=== PATIENT | male | born 1975 | race Caucasian/White ===

== ENCOUNTER 2020-05-15 08:58 | Inpatient (IN) ==
[2020-05-15] MEDS ORDERED: Aspirin 81 MG TAB.CHEW PO SCH (09:30)
[2020-05-15] MEDS: Nitroglycerin 0.4 MG TAB.SUBL SL PRN ×5 (09:45→19:53)
[2020-05-15 10:29] LABS: Basophils # 0.1 K/mcL (0.0-0.2); Basophils % 0.7 %; Eosinophils # 0.1 K/mcL (0.0-0.6); Eosinophils % 1.8 %; Hemoglobin 15.7 g/dL (12.9-16.9); Immature Granulocytes % 0.7 % (0-4); Lymphocytes # 1.2 K/mcL (0.6-4.6); Lymphocytes % 16.7 %; Mean Corpuscular HGB Conc 34.1 g/dL (31.6-35.5); Mean Corpuscular Hemoglobin 28.2 pg (28.0-33.3); Mean Corpuscular Volume 82.6 fL (83.0-100.0); Mean Platelet Volume 11.4 fL (9.4-12.4); Monocytes # 0.5 K/mcL (0.0-1.3); Monocytes % 7.3 %; Neutrophils # 5.3 K/mcL (1.6-8.9); Platelet Count 163 K/mcL (140-400); Red Blood Count 5.57 M/mcL (4.19-5.50); Red Cell Distribution Width 17.1 % (11.5-14.5); Segmented Neutrophils % 72.8 %; White Blood Count 7.3 K/mcL (4.3-11.1)
[2020-05-15 10:38] LABS: BUN/Creatinine Ratio 14 (6-26); Blood Urea Nitrogen 12 mg/dL (6-20); Calcium 9.8 mg/dL (8.6-10.3); Carbon Dioxide 26 mEq/L (23-29); Chloride 101 mEq/L (98-107); Glucose 174 mg/dL (70-105); Lipase 27 Units/L (11-82); Osmolality,Calculated 284 (280-300); Potassium 3.9 mEq/L (3.5-5.1); Sodium 135 mEq/L (136-145); eGFR For African Americans > 60 (> 60); eGFR For Non-African Americans > 60 (> 60)
[2020-05-15 10:43] LABS: Troponin I 2.44 ng/mL (< 0.04)
[2020-05-15 10:45] LABS: Prothrombin Time 11.7 Seconds (9.4-12.1)
[2020-05-15 10:48] LABS: Activated Partial Thrombo Time 25.8 Seconds (26.0-36.0)
[2020-05-15 10:49] LABS: Adenovirus Not Detected (Not Detect); Bordetella Pertussis Not Detected (Not Detect); Chlamydophila pneumoniae Not Detected (Not Detect); Coronavirus 229E Not Detected (Not Detect); Coronavirus HKU1 Not Detected (Not Detect); Coronavirus NL63 Not Detected (Not Detect); Coronavirus OC43 Not Detected (Not Detect); Human Metapneumovirus Not Detected (Not Detect); Human Rhinovirus/Enterovirus Not Detected (Not Detect); Influenza A Subtype 2009 H1 Not Detected (Not Detect); Influenza B Not Detected (Not Detect); Mycoplasma pneumoniae Not Detected (Not Detect); Parainfluenza Virus 1 Not Detected (Not Detect); Parainfluenza Virus 2 Not Detected (Not Detect); Parainfluenza Virus 3 Not Detected (Not Detect); Parainfluenza Virus 4 Not Detected (Not Detect); Respiratory Syncytial Virus Not Detected (Not Detect); SARS-CoV-2 Not Detected (Not Detect)
[2020-05-15] MEDS ORDERED: *HR* Heparin 5,000 UNIT/ML VIAL IVP ONE ×2 (10:56→16:12)
[2020-05-15] MEDS ORDERED: *HR* Heparin 5,000 UNIT/ML VIAL IVP PRN ×4 (10:56→16:12)
[2020-05-15] MEDS ORDERED: Perflutren Lipid Microsphere 1.3 ML in 0.9 % Sodium Chloride 8.7 ML IVP PRN (10:56)
[2020-05-15] MEDS ORDERED: Heparin 25,000UNIT/250ML 1/2NS 25,000 UNIT/250 ML IV.SOLN IVC SCH ×2 (11:00→16:15)
[2020-05-15 11:18] LABS: Hematocrit 45.9 % (37.5-50.1); Hemoglobin 15.6 g/dL (12.9-16.9); Mean Corpuscular Hemoglobin 28.7 pg (28.0-33.3); Mean Corpuscular Volume 84.4 fL (83.0-100.0); Mean Platelet Volume 10.7 fL (9.4-12.4); Platelet Count 167 K/mcL (140-400); Red Blood Count 5.44 M/mcL (4.19-5.50); Red Cell Distribution Width 18.2 % (11.5-14.5); White Blood Count 7.3 K/mcL (4.3-11.1)
[2020-05-15 11:38] LABS: Prothrombin Time 11.7 Seconds (9.4-12.1)
[2020-05-15 11:39] LABS: Heparin anti-factor XA UFH < 0.04 IU/mL (0.30-0.70)
[2020-05-15] MEDS ORDERED: *HR* Promethazine 25 MG/ML VIAL IVP PRN (11:49)
[2020-05-15] MEDS ORDERED: Acetaminophen 325 MG TABLET PO PRN (11:49)
[2020-05-15] MEDS ORDERED: D5% in Water 1,000 ML IVC PRN (11:53)
[2020-05-15] MEDS ORDERED: *HR* Dextrose 50 % in Water (Vial) 50 ML VIAL IVP PRN (11:53)
[2020-05-15] MEDS ORDERED: Dextrose Gel 15 GM/37.5 ML TUBE PO PRN ×2 (11:53)
[2020-05-15] MEDS ORDERED: Morphine Sulfate 2 MG/ML SYRINGE IVP PRN (11:53)
[2020-05-15 12:15] LABS: Chol/HDL Ratio 6.6 (0-4.9)
[2020-05-15] MEDS ORDERED: Metoprolol XL (24 HR) Succ 50 MG TAB.ER.24H PO SCH (12:15)
[2020-05-15] MEDS ORDERED: 0.9 % Sodium Chloride 1,000 ML ONE ×2 (13:53→14:02)
[2020-05-15] MEDS ORDERED: Heparin 1,000 UNITS/500 mL 500 ML ONE (13:53)
[2020-05-15] MEDS ORDERED: ISOVUE-370 200 ML INFUS..BTL ONE (13:53)
[2020-05-15] MEDS ORDERED: *HR* Heparin 10,000 UNIT/10 ML VIAL ONE (13:53)
[2020-05-15] MEDS ORDERED: Nitroglycerin 1,000 MCG/10 ML VIAL IV ONE (13:53)
[2020-05-15] MEDS ORDERED: *HR* FentaNYL (PF) 100 MCG/2 ML VIAL ONE (14:12)
[2020-05-15] MEDS ORDERED: *HR* Midazolam HCl 2 MG/2 ML VIAL ONE ×2 (14:12→14:32)
[2020-05-15 14:30] LABS: Estimated Average Glucose 157 mg/dl
[2020-05-15] MEDS ORDERED: 0.9 % Sodium Chloride 1,000 ML IVC SCH (15:15)
[2020-05-15] MEDS ORDERED: Insulin LISPRO 300 UNITS/3 ML VIAL SQ SCH ×2 (16:30→21:00)
[2020-05-15 18:15] LABS: Bilirubin,Urine Negative (Negative); Blood,Urine Negative (Negative); Clarity,Urine Clear (Clear); Color,Urine Colorless (Yellow); Glucose,Urine (UA) >=1000 mg/dL (Normal); Ketones,Urine Negative (Negative); Leukocyte Esterase,Urine Negative (Negative); Nitrite,Urine Negative (Negative); PH,Urine 6.5 pH Units (5.0-8.0); Protein,Urine Negative (Neg-Trace); RBC,Urine 0-3 per hpf (0-3); Specific Gravity,Urine 1.029 (1.010-1.025); Urobilinogen,Urine Normal (Normal); WBC,Urine 0-3 per hpf (0-3)
[2020-05-15] MEDS ORDERED: Morphine Sulfate 2 MG/ML SYRINGE IVP ONE (20:01)
[2020-05-15] MEDS: Chlorhexidine Rinse 15 ML MOUTHWASH MM SCH (20:05)
[2020-05-16 01:18] LABS: Hematocrit 44.5 % (37.5-50.1); Hemoglobin 14.7 g/dL (12.9-16.9); Mean Corpuscular Hemoglobin 27.9 pg (28.0-33.3); Mean Corpuscular Volume 84.4 fL (83.0-100.0); Mean Platelet Volume 11.2 fL (9.4-12.4); Platelet Count 181 K/mcL (140-400); Red Blood Count 5.27 M/mcL (4.19-5.50); White Blood Count 8.3 K/mcL (4.3-11.1)
[2020-05-16] MEDS: Nitroglycerin 0.4 MG TAB.SUBL SL PRN ×3 (01:31→01:52)
[2020-05-16 01:37] LABS: BUN/Creatinine Ratio 13 (6-26); Blood Urea Nitrogen 14 mg/dL (6-20); Calcium 9.7 mg/dL (8.6-10.3); Carbon Dioxide 25 mEq/L (23-29); Chloride 99 mEq/L (98-107); Glucose 125 mg/dL (70-105); Osmolality,Calculated 278 (280-300); Potassium 3.7 mEq/L (3.5-5.1); Sodium 133 mEq/L (136-145); eGFR For African Americans > 60 (> 60); eGFR For Non-African Americans > 60 (> 60)
[2020-05-16] MEDS ORDERED: Dextrose 50 % in Water (Vial) 30 ML, Sodium Bicarbonate 20 MEQ, Potassium Chloride 15 M... TH ONE (06:00)
[2020-05-16] MEDS ORDERED: Norepinephrine 4 MG in 0.9 % Sodium Chloride 250 ML IVC PRN (06:00)
[2020-05-16] MEDS ORDERED: Insulin Human Regular 100 UNIT in 0.9 % Sodium Chloride 100 ML IV PRN (06:00)
[2020-05-16] MEDS ORDERED: Heparin 15,000 UNIT in 0.9 % Sodium Chloride 500 ML IV ONE (06:00)
[2020-05-16] MEDS ORDERED: Dextrose 50 % in Water (Vial) 30 ML, Sodium Bicarbonate 20 MEQ, Lidocaine 1% 5 ML, Insu... TH ONE ×3 (06:00)
[2020-05-16] MEDS: Chlorhexidine Rinse 15 ML MOUTHWASH MM SCH ×2 (06:37→19:58)
[2020-05-16] MEDS ORDERED: CeFAZolin Syr 3,000MG/30 ML 3,000 MG/30 ML SYRINGE IVPB ONE (07:00)
[2020-05-16] MEDS ORDERED: *HR* Propofol 200 MG/20 ML VIAL IVP ONE (07:03)
[2020-05-16] MEDS ORDERED: *HR* FentaNYL (PF) 1,000 MCG/20 ML VIAL ONE (07:03)
[2020-05-16] MEDS ORDERED: *HR* Midazolam HCl 5 MG/5 ML VIAL IVP ONE (07:03)
[2020-05-16] MEDS ORDERED: *HR* Rocuronium Bromide 50 MG/5 ML VIAL ONE ×2 (07:05→08:45)
[2020-05-16] MEDS ORDERED: Dexamethasone 4 MG/ML VIAL ONE (07:05)
[2020-05-16] MEDS ORDERED: *HR* PHENYLEPHRINE 1,000 MCG/10 ML SYRINGE IVP ONE (07:05)
[2020-05-16] MEDS ORDERED: *HR* Magnesium Sulfate 1 GM/2 ML VIAL ONE (07:07)
[2020-05-16] MEDS ORDERED: Famotidine 20 MG/2 ML VIAL ONE (07:07)
[2020-05-16] MEDS ORDERED: Lidocaine 2% Syringe 100 MG/5 ML ONE (07:09)
[2020-05-16] MEDS ORDERED: Tranexamic Acid 1,000 MG/10 ML VIAL ONE (07:09)
[2020-05-16 08:21] LABS: ABG Base Excess 2 mEq/L (-2 to 3); ABG Chloride 99 mEq/L (98-107); ABG Glucose 145 mg/dL (60-95); ABG HCO3 28 mEq/L (21-27); ABG Ionized Calcium 1.22 mmol/L (1.15-1.35); ABG Oxygen Saturation 100 % (95-98); ABG PCO2 49 mmHg (35-45); ABG PH 7.37 pH Units (7.32-7.45); ABG PO2 320 mmHg (85-104); ABG TCO2 29 mEq/L (20-26)
[2020-05-16] MEDS ORDERED: Aspirin 81 MG TAB.CHEW PO SCH ×2 (09:00)
[2020-05-16] MEDS ORDERED: lisinopriL 10 MG TABLET PO SCH (09:00)
[2020-05-16 09:34] LABS: ABG Base Excess 0 mEq/L (-2 to 3); ABG Chloride 100 mEq/L (98-107); ABG Glucose 182 mg/dL (60-95); ABG HCO3 26 mEq/L (21-27); ABG Ionized Calcium 1.16 mmol/L (1.15-1.35); ABG Oxygen Saturation 99 % (95-98); ABG PCO2 46 mmHg (35-45); ABG PH 7.35 pH Units (7.32-7.45); ABG PO2 149 mmHg (85-104); ABG TCO2 27 mEq/L (20-26)
[2020-05-16] MEDS ORDERED: *HR* FentaNYL (PF) 250 MCG/5 ML VIAL ONE (09:40)
[2020-05-16 10:23] LABS: ABG Base Excess 1 mEq/L (-2 to 3); ABG Chloride 97 mEq/L (98-107); ABG Glucose 216 mg/dL (60-95); ABG HCO3 27 mEq/L (21-27); ABG Ionized Calcium 1.07 mmol/L (1.15-1.35); ABG Oxygen Saturation 100 % (95-98); ABG PCO2 52 mmHg (35-45); ABG PH 7.33 pH Units (7.32-7.45); ABG PO2 521 mmHg (85-104); ABG TCO2 29 mEq/L (20-26)
[2020-05-16 10:54] LABS: ABG Base Excess 1 mEq/L (-2 to 3); ABG Chloride 97 mEq/L (98-107); ABG Glucose 202 mg/dL (60-95); ABG HCO3 27 mEq/L (21-27); ABG Ionized Calcium 1.07 mmol/L (1.15-1.35); ABG Oxygen Saturation 100 % (95-98); ABG PCO2 46 mmHg (35-45); ABG PH 7.38 pH Units (7.32-7.45); ABG PO2 494 mmHg (85-104); ABG TCO2 28 mEq/L (20-26)
[2020-05-16] MEDS ORDERED: Protamine Sulfate 250 MG/25 ML VIAL IVP ONE (11:01)
[2020-05-16] MEDS ORDERED: Calcium Gluconate 1,000 MG/10 ML VIAL ONE (11:01)
[2020-05-16] MEDS ORDERED: Albumin Human 5% 12.5 GM/250 ML IV.SOLN ONE (11:19)
[2020-05-16] MEDS ORDERED: niCARdipine 20 MG/200 ML MLS IVC ONE (11:20)
[2020-05-16 11:25] LABS: ABG Base Excess -1 mEq/L (-2 to 3); ABG Chloride 103 mEq/L (98-107); ABG Glucose 133 mg/dL (60-95); ABG HCO3 24 mEq/L (21-27); ABG Ionized Calcium 0.96 mmol/L (1.15-1.35); ABG Oxygen Saturation 99 % (95-98); ABG PCO2 42 mmHg (35-45); ABG PH 7.37 pH Units (7.32-7.45); ABG PO2 139 mmHg (85-104); ABG TCO2 26 mEq/L (20-26)
[2020-05-16] MEDS ORDERED: Naloxone 0.4 MG/ML INJ IVP PRN (12:08)
[2020-05-16] MEDS ORDERED: *HR* FentaNYL (PF) 100 MCG/2 ML VIAL IVP PRN (12:08)
[2020-05-16] MEDS ORDERED: Potassium Chloride 40 MEQ/200 ML BAG IVPB PRN (12:08)
[2020-05-16] MEDS ORDERED: *HR* Dextrose 50 % in Water (Vial) 50 ML VIAL IVP PRN (12:08)
[2020-05-16] MEDS ORDERED: Insulin Regular, Human 100 UNIT/ML IV PRN (12:08)
[2020-05-16 12:35] LABS: Basophils % 0.3 %; Eosinophils # 0.1 K/mcL (0.0-0.6); Eosinophils % 0.4 %; Hematocrit 40.1 % (37.5-50.1); Hemoglobin 13.3 g/dL (12.9-16.9); Immature Granulocytes % 1.5 % (0-4); Lymphocytes # 0.9 K/mcL (0.6-4.6); Lymphocytes % 6.7 %; Mean Corpuscular HGB Conc 33.2 g/dL (31.6-35.5); Mean Corpuscular Hemoglobin 28.5 pg (28.0-33.3); Mean Corpuscular Volume 85.9 fL (83.0-100.0); Mean Platelet Volume 10.6 fL (9.4-12.4); Monocytes # 0.6 K/mcL (0.0-1.3); Monocytes % 4.4 %; Neutrophils # 11.7 K/mcL (1.6-8.9); Nucleated Red Blood Cells 0.1 /100 WBC (0); Platelet Count 140 K/mcL (140-400); Red Blood Count 4.67 M/mcL (4.19-5.50); Red Cell Distribution Width 17.3 % (11.5-14.5); Segmented Neutrophils % 86.7 %
[2020-05-16 12:37] LABS: White Blood Count 13.5 K/mcL (4.3-11.1)
[2020-05-16] MEDS ORDERED: *HR* Vecuronium 10 MG VIAL IVP ONE (12:39)
[2020-05-16] MEDS: *HR* FentaNYL (PF) 100 MCG/2 ML VIAL IVP PRN ×4 (12:42→23:15)
[2020-05-16 12:54] LABS: BUN/Creatinine Ratio 16 (6-26); Blood Urea Nitrogen 16 mg/dL (6-20); Calcium 8.3 mg/dL (8.6-10.3); Carbon Dioxide 26 mEq/L (23-29); Chloride 102 mEq/L (98-107); Glucose 156 mg/dL (70-105); INR 1.2; Magnesium 2.9 mg/dL (1.6-2.6); Osmolality,Calculated 282 (280-300); Prothrombin Time 13.5 Seconds (9.4-12.1); Sodium 134 mEq/L (136-145); eGFR For African Americans > 60 (> 60); eGFR For Non-African Americans > 60 (> 60)
[2020-05-16 12:57] LABS: Activated Partial Thrombo Time 26.5 Seconds (26.0-36.0)
[2020-05-16] MEDS ORDERED: *HR* Phenylephrine 10 MG/ML VIAL IVC ONE (13:19)
[2020-05-16] MEDS ORDERED: *HR* Magnesium Sulfate 2 GM/50 ML PIGGYBACK IVPB ONE (13:19)
[2020-05-16] MEDS ORDERED: *HR* Heparin 10,000 UNIT/10 ML VIAL IR ONE (13:19)
[2020-05-16] MEDS ORDERED: Albumin Human 25% 25 GM/100 ML IV.SOLN IVPB ONE (13:19)
[2020-05-16] MEDS ORDERED: Mannitol 25% vial 12.5 GM/50 ML VIAL IVPB ONE (13:19)
[2020-05-16] MEDS ORDERED: Lidocaine 2% Syringe 100 MG/5 ML IVP ONE (13:19)
[2020-05-16] MEDS ORDERED: Tranexamic Acid 1,000 MG/10 ML VIAL IR ONE (13:19)
[2020-05-16] MEDS: Albumin Human 5% 12.5 GM/250 ML IV.SOLN IVPB PRN ×2 (13:32→15:23)
[2020-05-16 14:20] LABS: ABG Base Excess -1 mEq/L (-2 to 3); ABG HCO3 27 mEq/L (21-27); ABG Oxygen Saturation 94 % (95-98); ABG PCO2 54 mmHg (35-45); ABG PO2 79 mmHg (85-104); ABG TCO2 28 mEq/L (20-26); Blood Gas Modality ASSIST CONTROL; Blood Gas VT 500 cc
[2020-05-16] MEDS: Ondansetron 4 MG/2 ML VIAL IVP PRN ×2 (14:30→19:58)
[2020-05-16] MEDS: 0.9 % Sodium Chloride 1,000 ML IVC SCH (16:45)
[2020-05-16] MEDS ORDERED: FentaNYL (PF) 1,000 MCG/100 ML IV.SOLN IVC SCH (16:45)
[2020-05-16] MEDS ORDERED: Dexmedetomidine HCl 400 MCG/100 ML MLS IVC SCH (16:45)
[2020-05-16] MEDS ORDERED: *HR* FentaNYL (PF) 100 MCG/2 ML VIAL IVP ONE (16:46)
[2020-05-16] MEDS: ceFAZolin 3,000 MG in 0.9 % Sodium Chloride 100 ML IVPB SCH (17:58)
[2020-05-16] MEDS: Norepinephrine 4 MG/254 ML IV.SOLN IVC SCH (19:43)
[2020-05-16] MEDS: niCARdipine 20 MG/200 ML MLS IVC SCH ×3 (19:43→23:07)
[2020-05-16] MEDS: Insulin Human Regular 100 UNIT in 0.9 % Sodium Chloride 100 ML IVC SCH (19:44)
[2020-05-16] MEDS: *HR* OxyCODONE/APAP 5/325 TABLET PO PRN (19:58)
[2020-05-17] MEDS: ceFAZolin 3,000 MG in 0.9 % Sodium Chloride 100 ML IVPB SCH (00:05)
[2020-05-17] MEDS: niCARdipine 20 MG/200 ML MLS IVC SCH ×3 (00:55→13:20)
[2020-05-17] MEDS: Ondansetron 4 MG/2 ML VIAL IVP PRN ×2 (02:28→13:00)
[2020-05-17] MEDS: *HR* OxyCODONE/APAP 5/325 TABLET PO PRN ×3 (02:28→17:52)
[2020-05-17] MEDS: 0.9 % Sodium Chloride 1,000 ML IVC SCH (04:31)
[2020-05-17] MEDS: *HR* FentaNYL (PF) 100 MCG/2 ML VIAL IVP PRN (04:31)
[2020-05-17 04:34] LABS: Basophils % 0.1 %; Hematocrit 31.4 % (37.5-50.1); Immature Granulocytes % 0.4 % (0-4); Lymphocytes # 0.6 K/mcL (0.6-4.6); Lymphocytes % 5.1 %; Mean Corpuscular HGB Conc 32.5 g/dL (31.6-35.5); Mean Corpuscular Hemoglobin 27.9 pg (28.0-33.3); Mean Platelet Volume 11.7 fL (9.4-12.4); Monocytes # 1.1 K/mcL (0.0-1.3); Monocytes % 9.8 %; Neutrophils # 9.6 K/mcL (1.6-8.9); Nucleated Red Blood Cells 0.2 /100 WBC (0); Platelet Count 146 K/mcL (140-400); Red Blood Count 3.65 M/mcL (4.19-5.50); Red Cell Distribution Width 17.3 % (11.5-14.5); Segmented Neutrophils % 84.6 %; White Blood Count 11.4 K/mcL (4.3-11.1)
[2020-05-17 04:49] LABS: BUN/Creatinine Ratio 22 (6-26); Blood Urea Nitrogen 21 mg/dL (6-20); Carbon Dioxide 24 mEq/L (23-29); Chloride 103 mEq/L (98-107); Glucose 142 mg/dL (70-105); Osmolality,Calculated 285 (280-300); Potassium 4.4 mEq/L (3.5-5.1); Sodium 135 mEq/L (136-145); eGFR For African Americans > 60 (> 60); eGFR For Non-African Americans > 60 (> 60)
[2020-05-17 04:56] LABS: Hemoglobin 10.2 g/dL (12.9-16.9)
[2020-05-17] MEDS ORDERED: *HR* FentaNYL (PF) 100 MCG/2 ML VIAL IVP PRN ×2 (07:38→13:31)
[2020-05-17] MEDS: Chlorhexidine Rinse 15 ML MOUTHWASH MM SCH ×2 (08:55→20:18)
[2020-05-17] MEDS ORDERED: Aspirin Enteric Coated 81 MG Tablet PO SCH (09:00)
[2020-05-17] MEDS ORDERED: Pantoprazole 40 MG VIAL IVP SCH (09:00)
[2020-05-17] MEDS: Insulin Human Regular 100 UNIT in 0.9 % Sodium Chloride 100 ML IVC SCH (13:21)
[2020-05-17] MEDS: Norepinephrine 4 MG/254 ML IV.SOLN IVC SCH (13:21)
[2020-05-17] MEDS ORDERED: Nitroglycerin 0.4 MG TAB.SUBL SL PRN (13:31)
[2020-05-17] MEDS ORDERED: Ondansetron 4 MG/2 ML VIAL IVP PRN (13:31)
[2020-05-17] MEDS ORDERED: *HR* Promethazine 25 MG/ML VIAL IVP PRN (13:31)
[2020-05-17] MEDS ORDERED: Naloxone 0.4 MG/ML INJ IVP PRN (13:31)
[2020-05-17] MEDS ORDERED: *HR* Dextrose 50 % in Water (Vial) 50 ML VIAL IVP PRN (13:31)
[2020-05-17] MEDS ORDERED: D5% in Water 1,000 ML IVC PRN (13:31)
[2020-05-17] MEDS ORDERED: Dextrose Gel 15 GM/37.5 ML TUBE PO PRN ×2 (13:31)
[2020-05-17] MEDS: Insulin LISPRO 300 UNITS/3 ML VIAL SQ SCH ×3 (14:48→20:19)
[2020-05-17] MEDS: *HR* Heparin 5,000 UNIT/ML VIAL SQ SCH (17:03)
[2020-05-17] MEDS: Acetaminophen 325 MG TABLET PO PRN (20:24)
[2020-05-18] MEDS: *HR* OxyCODONE/APAP 5/325 TABLET PO PRN ×4 (03:03→20:17)
[2020-05-18 04:27] LABS: Basophils % 0.3 %; Eosinophils % 0.1 %; Hematocrit 25.4 % (37.5-50.1); Immature Granulocytes % 0.7 % (0-4); Lymphocytes % 9.6 %; Mean Corpuscular HGB Conc 33.1 g/dL (31.6-35.5); Mean Corpuscular Volume 87.6 fL (83.0-100.0); Mean Platelet Volume 11.6 fL (9.4-12.4); Monocytes # 1.4 K/mcL (0.0-1.3); Monocytes % 12.8 %; Neutrophils # 8.1 K/mcL (1.6-8.9); Nucleated Red Blood Cells 0.7 /100 WBC (0); Platelet Count 121 K/mcL (140-400); Segmented Neutrophils % 76.5 %; White Blood Count 10.6 K/mcL (4.3-11.1)
[2020-05-18 04:43] LABS: BUN/Creatinine Ratio 26 (6-26); Blood Urea Nitrogen 30 mg/dL (6-20); Calcium 8.2 mg/dL (8.6-10.3); Carbon Dioxide 28 mEq/L (23-29); Chloride 95 mEq/L (98-107); Glucose 194 mg/dL (70-105); Osmolality,Calculated 277 (280-300); Potassium 4.2 mEq/L (3.5-5.1); Sodium 128 mEq/L (136-145); eGFR For African Americans > 60 (> 60); eGFR For Non-African Americans > 60 (> 60)
[2020-05-18 05:27] LABS: Hemoglobin 8.4 g/dL (12.9-16.9)
[2020-05-18] MEDS: *HR* Heparin 5,000 UNIT/ML VIAL SQ SCH ×2 (05:45→16:44)
[2020-05-18] MEDS: Insulin LISPRO 300 UNITS/3 ML VIAL SQ SCH ×4 (07:42→20:59)
[2020-05-18] MEDS: Chlorhexidine Rinse 15 ML MOUTHWASH MM SCH ×2 (07:43→20:16)
[2020-05-18] MEDS: Aspirin Enteric Coated 81 MG Tablet PO SCH (07:43)
[2020-05-18] MEDS ORDERED: 0.9 % Sodium Chloride 250 ML ONE (12:08)
[2020-05-19 01:30] LABS: BUN/Creatinine Ratio 31 (6-26); Blood Urea Nitrogen 28 mg/dL (6-20); Calcium 8.5 mg/dL (8.6-10.3); Carbon Dioxide 27 mEq/L (23-29); Chloride 95 mEq/L (98-107); Glucose 178 mg/dL (70-105); Osmolality,Calculated 280 (280-300); Potassium 3.7 mEq/L (3.5-5.1); Sodium 130 mEq/L (136-145); eGFR For African Americans > 60 (> 60); eGFR For Non-African Americans > 60 (> 60)
[2020-05-19 02:56] LABS: Hemoglobin 8.7 g/dL (12.9-16.9); Red Blood Count 2.99 M/mcL (4.19-5.50); White Blood Count 11.3 K/mcL (4.3-11.1)
[2020-05-19 02:57] LABS: Basophils # 0.1 K/mcL (0.0-0.2); Basophils % 0.5 %; Eosinophils # 0.1 K/mcL (0.0-0.6); Eosinophils % 0.4 %; Immature Granulocytes % 0.9 % (0-4); Lymphocytes # 1.5 K/mcL (0.6-4.6); Lymphocytes % 12.9 %; Mean Corpuscular HGB Conc 33.5 g/dL (31.6-35.5); Mean Corpuscular Hemoglobin 29.1 pg (28.0-33.3); Mean Platelet Volume 11.7 fL (9.4-12.4); Monocytes # 1.5 K/mcL (0.0-1.3); Monocytes % 12.8 %; Neutrophils # 8.2 K/mcL (1.6-8.9); Platelet Count 129 K/mcL (140-400); Red Cell Distribution Width 17.2 % (11.5-14.5); Segmented Neutrophils % 72.5 %
[2020-05-19] MEDS: *HR* Heparin 5,000 UNIT/ML VIAL SQ SCH ×2 (06:34→16:53)
[2020-05-19] MEDS: *HR* OxyCODONE/APAP 5/325 TABLET PO PRN ×3 (06:46→21:38)
[2020-05-19] MEDS: Aspirin Enteric Coated 81 MG Tablet PO SCH (07:51)
[2020-05-19] MEDS: Chlorhexidine Rinse 15 ML MOUTHWASH MM SCH ×2 (07:52→21:38)
[2020-05-19] MEDS: Insulin LISPRO 300 UNITS/3 ML VIAL SQ SCH ×4 (07:53→21:39)
[2020-05-19] MEDS: Furosemide 20 MG/2 ML VIAL IVP SCH (15:59)
[2020-05-19] MEDS: Insulin DETEMIR 100 UNIT/ML X5UNITS SQ SCH (22:30)
[2020-05-20] MEDS: *HR* OxyCODONE/APAP 5/325 TABLET PO PRN ×5 (02:09→20:28)
[2020-05-20] MEDS: *HR* Heparin 5,000 UNIT/ML VIAL SQ SCH ×2 (05:46→18:37)
[2020-05-20 07:19] LABS: Basophils % 0.5 %; Eosinophils # 0.1 K/mcL (0.0-0.6); Eosinophils % 1.1 %; Hematocrit 25.3 % (37.5-50.1); Hemoglobin 8.3 g/dL (12.9-16.9); Immature Granulocytes % 1.7 % (0-4); Lymphocytes # 1.5 K/mcL (0.6-4.6); Lymphocytes % 18.2 %; Mean Corpuscular HGB Conc 32.8 g/dL (31.6-35.5); Mean Corpuscular Volume 88.5 fL (83.0-100.0); Mean Platelet Volume 11.4 fL (9.4-12.4); Monocytes % 11.5 %; Neutrophils # 5.6 K/mcL (1.6-8.9); Nucleated Red Blood Cells 3.6 /100 WBC (0); Platelet Count 162 K/mcL (140-400); Red Blood Count 2.86 M/mcL (4.19-5.50); Red Cell Distribution Width 17.7 % (11.5-14.5); White Blood Count 8.3 K/mcL (4.3-11.1)
[2020-05-20 07:27] LABS: BUN/Creatinine Ratio 23 (6-26); Blood Urea Nitrogen 21 mg/dL (6-20); Calcium 9.1 mg/dL (8.6-10.3); Carbon Dioxide 33 mEq/L (23-29); Chloride 94 mEq/L (98-107); Glucose 194 mg/dL (70-105); Osmolality,Calculated 284 (280-300); Potassium 3.7 mEq/L (3.5-5.1); Sodium 133 mEq/L (136-145); eGFR For African Americans > 60 (> 60); eGFR For Non-African Americans > 60 (> 60)
[2020-05-20] MEDS: Acetaminophen 325 MG TABLET PO PRN (08:53)
[2020-05-20] MEDS: Furosemide 20 MG/2 ML VIAL IVP SCH (08:54)
[2020-05-20] MEDS: Aspirin Enteric Coated 81 MG Tablet PO SCH (08:56)
[2020-05-20] MEDS: Chlorhexidine Rinse 15 ML MOUTHWASH MM SCH ×2 (08:57→20:29)
[2020-05-20] MEDS: Insulin LISPRO 300 UNITS/3 ML VIAL SQ SCH ×4 (08:58→20:29)
[2020-05-20] MEDS: Insulin DETEMIR 100 UNIT/ML X5UNITS SQ SCH (20:35)
[2020-05-21 02:11] LABS: BUN/Creatinine Ratio 26 (6-26); Blood Urea Nitrogen 21 mg/dL (6-20); Carbon Dioxide 29 mEq/L (23-29); Chloride 91 mEq/L (98-107); Glucose 188 mg/dL (70-105); Magnesium 1.8 mg/dL (1.6-2.6); Osmolality,Calculated 278 (280-300); Potassium 3.6 mEq/L (3.5-5.1); Sodium 130 mEq/L (136-145); eGFR For African Americans > 60 (> 60); eGFR For Non-African Americans > 60 (> 60)
[2020-05-21] MEDS: *HR* Heparin 5,000 UNIT/ML VIAL SQ SCH (06:31)
[2020-05-21] MEDS: Insulin LISPRO 300 UNITS/3 ML VIAL SQ SCH ×2 (08:23→12:33)
[2020-05-21] MEDS: Aspirin Enteric Coated 81 MG Tablet PO SCH (08:24)
[2020-05-21] MEDS: Furosemide 20 MG/2 ML VIAL IVP SCH (08:25)
[2020-05-21] MEDS: Chlorhexidine Rinse 15 ML MOUTHWASH MM SCH (08:26)
[2020-05-21 12:16] VITALS: BP 108/77
== END 2020-05-21 13:20 | disposition home or self-care (01) | DRG 165 ==
LOC: EMEROOARM 08:58 → 2ANU 08:58 → SUATTDRO 14:22 → ICNU 05-16 08:42 → 2NNU 05-18 19:05
PROVIDERS: ADMIT Internal Medicine; ATTEND Thoracic Surgery (Cardiothoracic Vascular Surgery)